=== PATIENT | female | born 1985 | race African-American/Black ===

== ENCOUNTER 2021-01-28 00:10 | Emergency (ER) | payer BC, MEDICAID ==
[~2021-01-28] VITALS: Ht 162.6 cm; Wt 65.0 kg
[2021-01-28] MEDS ORDERED: NAPROXEN 375MG TABLET PO NR (01:30)
[2021-01-28 02:52] VITALS: BP 129/84
== END 2021-01-28 02:30 | disposition home or self-care (01) ==
LOC: ER 00:10
DX: S00.81XA Abrasion of other part of head, initial encounter (principal); F10.129 Alcohol abuse with intoxication, unspecified; F12.10 Cannabis abuse, uncomplicated; R51.9 Headache, unspecified; Z88.0 Allergy status to penicillin; Z88.6 Allergy status to analgesic agent; Z88.8 Allergy status to other drugs, medicaments and biological substances; Z86.59 Personal history of other mental and behavioral disorders; Y90.9 Presence of alcohol in blood, level not specified; W18.30XA Fall on same level, unspecified, initial encounter; Y93.89 Activity, other specified; Y92.89 Other specified places as the place of occurrence of the external cause; Y99.8 Other external cause status
CPT/HCPCS: 81025; 99284